=== PATIENT | male | born 1960 | race Caucasian/White ===

== ENCOUNTER 2021-06-27 03:03 | Emergency (ER) | payer MEDICARE, SELFPAY ==
[2021-06-27 03:05] VITALS: BP 113/64; PULSE 65; RESP 14; TEMP 36.4; O2SAT 92; BMI 30.8
--- NOTE | 2021-06-27 03:08 | XRR_ITS ---
PROCEDURE INFORMATION: Exam: XR Chest Exam date and time: 06/27/2021 3:08 AM Age: 61 years old Clinical indication: Prior surgery; Surgery type: Open heart; Patient HX: General weakness. TECHNIQUE: Imaging protocol: XR of the chest. Views: 1 view. COMPARISON: No relevant prior studies available. FINDINGS: Lungs: Unremarkable. No consolidation. Pleural spaces: Unremarkable. No pleural effusion. No pneumothorax. Heart/Mediastinum: Unremarkable. No cardiomegaly. Bones/joints: There has been a median sternotomy. XR/XR chest 1V portable [id number] IMPRESSION: No acute disease.
--- NOTE | 2021-06-27 03:08 | XRR_ITS ---
PROCEDURE INFORMATION: Exam: XR Right Hip Exam date and time: 06/27/2021 3:08 AM Age: 61 years old Clinical indication: Right hip; Patient HX: Worsening chronic hip pain. No known injury. TECHNIQUE: Imaging protocol: XR Right hip. Views: 1 view hip with pelvis when performed. COMPARISON: No relevant prior studies available. FINDINGS: Bones/joints: No acute fracture or dislocation. Severe joint space narrowing with subchondral sclerosis , cyst formation and remodeling of the femoral head. Soft tissues: Unremarkable. XR/XR hip RT 2-3V wo/w pel* [id number] IMPRESSION: 1. No acute fracture or dislocation. 2. Severe right hip osteoarthritis.
--- NOTE | 2021-06-27 03:08 | ECG_ITS ---
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 Measurements Intervals [place] Rate: 59 P: 40 DC: 160 QRS: 42 QRSD: 124 T: 71 QT: 398 QTc: 396 Interpretive Statements SINUS BRADYCARDIA RIGHT BUNDLE BRANCH BLOCK [120+ ms QRS DURATION, UPRIGHT V1, 40+ ms S IN I/aVL/V4/V5/V6] No previous ECG available for comparison Electronically Signed On 06-27-2021 17:34:30 PET RESORT CONCIERGE by José Miguel Jaeger M.D. [id number]
--- NOTE | 2021-06-27 03:12 | ED_ITS ---
HPI - Extremity Problem General: Chief complaint: Extremity Problem,Nontraumatic Stated complaint: hip pain Time Seen by Provider: 06/27/21 03:03 Source: patient and EMS Mode of arrival: EMS Limitations: no limitations History of Present Illness: 61-year-old male who has a history of chronic right hip pain. He states he been having pain in the hip for years and is supposed to have a hip replacement. EMS was called tonight as residents for altered mental status he states that he was sleeping he has been smoking marijuana tonight he states for pain control. Here he is awake alert able answer all my questions appropriately is ANO x4. He states the pain in his hip has been worsening rates an 8 out of 10 has a hard time walking due to the pain. Denies any recent injuries denies any fevers. Associated symptoms: Deny chest pain, fever(s) or rash Review of Systems Const: Denies: fever(s), chills, body aches or change in appetite Eyes: Denies: blurry vision or eye discomfort ENMT: Denies: throat pain or dental pain Card: Denies: chest pain Resp: Denies: dyspnea GI: Denies: abdominal pain, nausea, vomiting or diarrhea : Denies: dysuria Musc: Reports: extremity pain Skin/Breast: Denies: rash Neuro: Denies: headache(s) Psych: Denies: depression Jesse/Lymph: Denies: easy bruising All/Imm: Denies: urticaria Physical Exam Const: COMMON NORMALS: no acute distress, patient oriented x3 and healthy appearing HENMT: COMMON NORMALS: normocephalic and atraumatic HEAD & SCALP: normocephalic and atraumatic Eye: COMMON NORMALS: Equal, round and reactive pupils present and EOMs intact bilaterally PUPIL: Yes Equal, round and reactive pupils present Neck/C-Spine: COMMON NORMALS: full ROM and supple Chest: COMMONS NORMALS: normal inspection of the chest and normal palpation of entire chest wall Resp: COMMON NORMALS: normal respiratory effort, No retractions, No use of accessory muscles and clear to auscultation bilaterally AUSCULTATION: clear to auscultation bilaterally Cardio: COMMON NORMALS: regular rate, regular rhythm and No murmurs present (Cardio) RATE: regular rate RHYTHM: regular rhythm GI: COMMON NORMALS: Normal to inspection, nondistended, normoactive bowel sounds present, Soft to palpation, non-tender and no masses PALPATION: Yes Soft to palpation Extremity: COMMON NORMALS: normal to inspection and full ROM NARRATIVE EXTREMITY EXAM: Tenderness along right hip pain with range of motion of the right hip distal pulses intact. Neuro: COMMON NORMALS: patient oriented x3, moves all extremities and no focal motor deficits Psych: COMMON NORMALS: mental status grossly normal, Normal thought process present and cooperative THOUGHT PROCESS: Normal thought process present Skin: COMMON NORMALS: no rashes or lesions noted and no wounds GENERAL SKIN EXAM: no rashes or lesions noted Course Vital Signs: Vital signs: Vital Signs Temperature 97.6 F 06/27/21 03:05 Pulse Rate 65 06/27/21 03:05 Respiratory Rate 14 06/27/21 03:05 Blood Pressure 113/64 06/27/21 03:05 Pulse Oximetry 92 06/27/21 03:05 MDM - Extremity (Nontraumatic) Medical Decision Making Patient presents here with right hip pain from chronic arthritis he has no signs of septic joint had some slight confusion at home today could be from marijuana use here he is able answer all my questions appropriately head CT is normal he is stable for discharge we will get him follow-up with orthopedics he is to return if worsening Lab Data : 06/27/21 02:50 06/27/21 02:50 Radiology Impressions Chest X-Ray 06/27/21 03:08 IMPRESSION: No acute disease. Hip/Pelvis X-Ray 06/27/21 03:08 IMPRESSION: 1. No acute fracture or dislocation. 2. Severe right hip osteoarthritis. Head CT 06/27/21 03:45 IMPRESSION: 1. No acute infarct or hemorrhage. 2. No calvarial or skull base fracture. Laboratory Results WBC 12.1 10^3/uL (4.0-10.0) H 06/27/21 02:50 RBC 4.45 10^6/uL (4.1-5.3) 06/27/21 02:50 Hgb 13.2 g/dL (11.7-16.6) 06/27/21 02:50 Hct 39.2 % (42.0-52.0) L 06/27/21 02:50 MCV 88.1 fl (80-94) 06/27/21 02:50 MCH 29.7 pg (28.0-34.0) 06/27/21 02:50 MCHC 33.7 g/dL (30.0-36.0) 06/27/21 02:50 RDW 12.3 % (12.1-15.1) 06/27/21 02:50 Plt Count 235 10^3/cmm (130-400) 06/27/21 02:50 MPV 11.3 fL (7.4-10.4) H 06/27/21 02:50 Neut % (Auto) 71.9 % 06/27/21 02:50 Lymph % (Auto) 15.9 % 06/27/21 02:50 Isabella % (Auto) 8.0 % 06/27/21 02:50 Eos % (Auto) 3.1 % 06/27/21 02:50 Baso % (Auto) 0.4 % 06/27/21 02:50 Neut # (Auto) 8.70 10^3/uL (1.8-7.7) H 06/27/21 02:50 Lymph # (Auto) 1.9 10^3/uL (0.8-4.8) 06/27/21 02:50 Isabella # (Auto) 1.0 10^3/uL (0.2-0.9) H 06/27/21 02:50 Eos # (Auto) 0.4 10^3/uL (0.0-0.8) 06/27/21 02:50 Baso # (Auto) 0.1 10^3/uL (0.0-0.1) 06/27/21 02:50 Nucleated RBC % (auto) 0 % 06/27/21 02:50 Nucleated RBCs # 0.0 /100WBC 06/27/21 02:50 ESR 18 mm/hr (0-10) H 06/27/21 02:50 Sodium 139 mmol/L (136-145) 06/27/21 02:50 Potassium 4.2 mmol/L (3.5-5.1) 06/27/21 02:50 Chloride 101 mmol/L (98-107) 06/27/21 02:50 Carbon Dioxide 25 mmol/L (22-29) 06/27/21 02:50 Anion Gap 17.2 (5-19) 06/27/21 02:50 BUN 22 mg/dL (8-23) 06/27/21 02:50 Creatinine 0.9 mg/dL (0.7-1.2) 06/27/21 02:50 GFR Calculation 86.1 mL/min (90-130) L 06/27/21 02:50 Glucose 229 mg/dL (65-115) H 06/27/21 02:50 Calculated Osmolality 299 mOsm/kg (285-295) H 06/27/21 02:50 Calcium 9.7 mg/dL (8.5-10.5) 06/27/21 02:50 Total Bilirubin 0.3 mg/dL (0.15-1.2) 06/27/21 02:50 AST 31 U/L (0-40) 06/27/21 02:50 ALT 34 U/L (0-41) 06/27/21 02:50 Alkaline Phosphatase 125 IU/L (40-130) 06/27/21 02:50 C-Reactive Protein 13.3 mg/L (0.0-4.9) H 06/27/21 02:50 Total Protein 6.9 g/dL (6.6-8.7) 06/27/21 02:50 Albumin 4.4 g/dL (3.5-5.2) 06/27/21 02:50 Globulin 2.5 g/dL (1.3-4.6) 06/27/21 02:50 EKG Data EKG 1: I personally reviewed and interpreted this EKG as follows: EKG interpretation date: 06/27/21 EKG interpretation time: 03:24 Interpretation: sinus demi hr [address] or t wave abnormalities qrs 124 qtc 397 Discharge Plan Discharge Patient Disposition: Home Clinical Impression: Hip pain, right Condition: Stable Prescriptions: New hydrocodone-acetaminophen 5-325 mg tablet 1 tab PO Q6H PRN (Reason: pain) Qty: 14 0RF Discharge Orders: Discharge ED (Routine); Ordered 06/27/21 Ordered By: Edgar Du Referrals: Janes Reilly DO [Physician] - 1-3 days Discharge Diet: Advance as tolerated Discharge Activity: Resume usual activity Patient Instructions: Hip Pain (ED), Opioid Safety Coding Level of Care Code ED Consumer Safety Inspector for Chg Fwd Exam Comprehensive
[2021-06-27 03:19] LABS: Basophils # 0.1 10^3/uL (0.0-0.1); Basophils % 0.4 %; Eosinophils # 0.4 10^3/uL (0.0-0.8); Eosinophils % 3.1 %; Hematocrit 39.2 % (42.0-52.0); Hemoglobin 13.2 g/dL (11.7-16.6); Lymphocytes # 1.9 10^3/uL (0.8-4.8); Lymphocytes % 15.9 %; Mean Corpuscular HGB Conc 33.7 g/dL (30.0-36.0); Mean Corpuscular Hemoglobin 29.7 pg (28.0-34.0); Mean Corpuscular Volume 88.1 fl (80-94); Mean Platelet Volume 11.3 fL (7.4-10.4); Neutrophils % 71.9 %; Nucleated Red Blood Cells % 0 %; Platelet Count 235 10^3/cmm (130-400); Red Blood Count 4.45 10^6/uL (4.1-5.3); Red Cell Distribution Width 12.3 % (12.1-15.1); White Blood Count 12.1 10^3/uL (4.0-10.0)
[2021-06-27 03:35] LABS: Alanine Aminotransferase 34 U/L (0-41); Albumin Level 4.4 g/dL (3.5-5.2); Alkaline Phosphatase 125 IU/L (40-130); Anion Gap 17.2 (5-19); Aspartate Amino Transferase 31 U/L (0-40); Blood Urea Nitrogen 22 mg/dL (8-23); C Reactive Protein 13.3 mg/L (0.0-4.9); Calcium 9.7 mg/dL (8.5-10.5); Carbon Dioxide 25 mmol/L (22-29); Chloride 101 mmol/L (98-107); Globulin 2.5 g/dL (1.3-4.6); Glomerular Filtration Rate 86.1 mL/min (90-130); Glucose 229 mg/dL (65-115); Osmolality Calculated 299 mOsm/kg (285-295); Potassium 4.2 mmol/L (3.5-5.1); Sodium 139 mmol/L (136-145); Total Bilirubin 0.3 mg/dL (0.15-1.2); Total Protein 6.9 g/dL (6.6-8.7)
[2021-06-27 03:36] LABS: Erythrocyte Sedimentation Rate 18 mm/hr (0-10)
--- NOTE | 2021-06-27 03:45 | CTR_ITS ---
PROCEDURE INFORMATION: Exam: CT Head Without Contrast Exam date and time: 06/27/2021 3:45 AM Age: 61 years old Clinical indication: Altered mental status/memory loss; Patient HX: Patient lethargic and acting confused. ; Additional info: Confusion TECHNIQUE: Imaging protocol: Computed tomography of the head without contrast. Radiation optimization: All CT scans at this facility use at least one of these dose optimization techniques: automated exposure control; mA and/or kV adjustment per patient size (includes targeted exams where dose is matched to clinical indication); or iterative reconstruction. COMPARISON: No relevant prior studies available. RADIATION DOSE METRICS: Total DLP (mGy-cm): 820.31 FINDINGS: Brain: Old left basal ganglia lacunar infarct. No acute infarct or hemorrhage. Cerebral ventricles: No ventriculomegaly. Paranasal sinuses: Mild mucosal thickening in the paranasal sinuses. Mastoid air cells: Visualized mastoid air cells are clear. Bones/joints: No calvarial or skull base fracture. Soft tissues: Unremarkable. CT/CT head wo con* [id number] IMPRESSION: 1. No acute infarct or hemorrhage. 2. No calvarial or skull base fracture.
[2021-06-27 04:42] VITALS: BP 142/75; PULSE 66; RESP 20; O2SAT 93
== END 2021-06-27 04:43 | disposition home or self-care (01) ==
PROVIDERS: Emergency Provider Emergency Medicine
DX: M25.551 Pain in right hip (principal); Z96.641 Presence of right artificial hip joint
CPT/HCPCS: 70450; 71045; 73502; 80053; 85025; 85651; 86140; 93005; 99283

== ENCOUNTER → 2021-07-25 13:49 | Day surgery (SDC) | payer MEDICARE, SELFPAY | PROVIDERS: Visit Provider Orthopaedic Surgery | DX: Z01.818 Encounter for other preprocedural examination (principal) | CPT/HCPCS: 93005 ==

== ENCOUNTER 2021-07-31 10:19 | Observation (INO) | payer MEDICARE, SELFPAY ==
[2021-07-25 13:36] VITALS: BMI 30.8
--- NOTE | 2021-07-25 13:49 | ECG_ITS ---
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 Measurements Intervals [place] Rate: 69 P: -1 AK: 169 QRS: 12 QRSD: 129 T: 33 QT: 379 QTc: 407 Interpretive Statements SINUS RHYTHM MODERATE INTRAVENTRICULAR CONDUCTION DELAY [110+ ms QRS DURATION] Compared to ECG 06/27/2021 03:24:35 Intraventricular conduction delay now present Sinus bradycardia no longer present Right bundle-branch block no longer present Electronically Signed On 07-25-2021 22:59:54 CDT by Gladis Suazo M.D. [id number]
[2021-07-25 14:03] LABS: Basophils # 0.1 10^3/uL (0.0-0.1); Basophils % 0.6 %; Eosinophils # 0.3 10^3/uL (0.0-0.8); Eosinophils % 4.1 %; Hematocrit 42.2 % (42.0-52.0); Hemoglobin 14.4 g/dL (11.7-16.6); Lymphocytes # 2.4 10^3/uL (0.8-4.8); Lymphocytes % 30.5 %; Mean Corpuscular HGB Conc 34.1 g/dL (30.0-36.0); Mean Corpuscular Hemoglobin 29.8 pg (28.0-34.0); Mean Corpuscular Volume 87.2 fl (80-94); Mean Platelet Volume 11.2 fL (7.4-10.4); Monocytes # 0.8 10^3/uL (0.2-0.9); Monocytes % 9.5 %; Neutrophils # 4.32 10^3/uL (1.8-7.7); Neutrophils % 54.9 %; Nucleated Red Blood Cells % 0 %; Platelet Count 205 10^3/cmm (130-400); Red Blood Count 4.84 10^6/uL (4.1-5.3); Red Cell Distribution Width 12.5 % (12.1-15.1); White Blood Count 7.9 10^3/uL (4.0-10.0)
--- NOTE | 2021-07-25 14:18 | P.ANESASSM_ITS ---
Pre-Anesthetic Assessment Height/Weight: Height 1.78 m Weight 97.522 kg Preop Diagnosis: osteoarthritis right hip Operation Date: 07/31/21 10:45 Proposed Procedures p Total Hip Arthroplasty right 63919/m16.11(Right) - Danis Moyer MD Familial anesthetic complications: None Was Beta Emma taken within 24 hours: N/A Was Clonidine taken within 24 hours: N/A Social No alcohol and No tobacco Former smoker, former ETOH use Exam alert, oriented x 3, clear to auscultation bilaterally and regular rate & rhythm Airway Submandibular: within normal limits Cervical ROM: within normal limits Mallampati: Class I Comments: Comments: Missing most teeth Pulmonary Shortness of Breath CV/HEM Coronary Artery Disease and Myocardial Infarction S/P 4 vessel CABG Per patient no CP or SOB with flight of stairs METS > 4 GI Gastroesophageal Reflux Disease (Occassionaly symptomatic on empty stomach ) Metabolic Diabetes Mellitus Musc/skel Osteoarthritis/DJD Neuropsych Had episode of waking up on ground about 5-6 years ago. No residual weakness. Suspects seizure or stroke Anesthetic Plan ASA status: 3 Anesthesia: Anesthesia Evaluation and General Other: We discussed risk and benefits of general vs spinal anesthesia including DVT risk, infection, paralysis/catastrophic nerve injury, back bruising/pain, PDPH, conversion to general in case of spinal, PONV, sore throat (sometimes severe), corneal abrasion, positioning and peripheral nerve injuries, life threatening allergic reaction, post operative ICU admission requiring prolonged intubation, stroke, heart attack, , post operative delirium and/or post operative cognitive decline, and rare incidences of recall (under general anesthesia). Patient prefers general. Risk of > 500 ml blood loss (7ml/kg in children): No Medications/Allergies Home Medications Medication Instructions Recorded Confirmed Last Taken Type alprazolam 0.25 mg tablet 0.25 mg PO BID 07/18/21 07/25/21 Unknown History amlodipine 2.5 mg tablet 2.5 mg PO DAILY 07/18/21 07/25/21 Unknown History aspirin 81 mg tablet,delayed 81 mg PO DAILY 07/18/21 07/25/21 Unknown History release clopidogrel 75 mg tablet (Plavix) 75 mg PO DAILY 07/18/21 07/25/21 Unknown History famotidine 20 mg tablet 20 mg PO DAILY 07/18/21 07/25/21 Unknown History gabapentin 400 mg capsule 400 mg PO TID 07/18/21 07/25/21 Unknown History glimepiride 2 mg tablet 2 mg PO DAILY 07/18/21 07/25/21 Unknown History metformin 1,000 mg tablet 1,000 mg PO BID 07/18/21 07/25/21 Unknown History oxycodone 20 mg tablet 20 mg PO QID PRN 07/18/21 07/25/21 Unknown History rosuvastatin 20 mg tablet 20 mg PO DAILY 07/18/21 07/25/21 Unknown History Allergies Allergy/AdvReac Type Severity Reaction Status Date / Time No Known Allergies Allergy Verified 07/18/21 15:20 [facility] Anesthesia Social History Smoking and tobacco status: former smoker Alcohol intake: never Data Anesthesia : 07/25/21 13:55 Short CBC 07/25/21 Range/Units 13:55 WBC 7.9 (4.0-10.0) 10^3/uL Hgb 14.4 (11.7-16.6) g/dL Hct 42.2 (42.0-52.0) % MCV 87.2 (80-94) fl Plt Count 205 (130-400) 10^3/cmm Neut % (Auto) 54.9 % Neut # (Auto) 4.32 (1.8-7.7) 10^3/uL Cardiac Studies: No Data to Display
[2021-07-31] VITALS (23 sets, daily range): BP systolic 93–180; BP diastolic 62–103; PULSE 58–84; RESP 12–18; TEMP 36.3–37.1; O2SAT 95–100
[2021-07-31 06:20] LABS: Glucose Point of Care 212 mg/dL (70-110)
[2021-07-31] MEDS: CELEcoxib 200 mg Capsule 400 MG PO (06:27)
[2021-07-31] MEDS: acetaminophen 500 mg Tablet 1000 MG PO ×3 (06:28→22:49)
[2021-07-31] MEDS: sodium chloride 0.9% 1,000 ML 30 ML IV (06:31)
--- NOTE | 2021-07-31 07:06 | P.HP_ITS ---
Same Day Surgery H&P Indication for Procedure/HPI DATE OF PROCEDURE: July 31, 2021 CHIEF COMPLAINT/INDICATIONFOR SURGICAL PROCEDURE: Osteoarthritis right hip here for right total hip arthroplasty PREOP DIAGNOSIS: Osteoarthritis Right hip PLANNED PROCEDURE: Operation Date: 07/31/21 07:00 Proposed Procedures p Total Hip Arthroplasty right 83647/m16.11(Right) - Danis Moyer MD 2-year history of progressive uncontrolled with medications including oxycodone and gabapentin here for elective right total hip arthroplasty Medications/Allergies* Home Medications Medication Instructions Recorded Confirmed Type alprazolam 0.25 mg tablet 0.25 mg PO BID 07/18/21 07/31/21 History amlodipine 2.5 mg tablet 2.5 mg PO DAILY 07/18/21 07/31/21 History aspirin 81 mg tablet,delayed 81 mg PO DAILY 07/18/21 07/31/21 History release clopidogrel 75 mg tablet (Plavix) 75 mg PO DAILY 07/18/21 07/31/21 History famotidine 20 mg tablet 20 mg PO DAILY 07/18/21 07/31/21 History gabapentin 400 mg capsule 400 mg PO TID 07/18/21 07/31/21 History glimepiride 2 mg tablet 2 mg PO DAILY 07/18/21 07/31/21 History metformin 1,000 mg tablet 1,000 mg PO BID 07/18/21 07/31/21 History oxycodone 20 mg tablet 20 mg PO QID PRN 07/18/21 07/31/21 History rosuvastatin 20 mg tablet 20 mg PO DAILY 07/18/21 07/31/21 History Allergies/Adverse Reactions Allergy/AdvReac Type Severity Reaction Status Date / Time No Known Allergies Allergy Verified 07/18/21 15:20 Current Medications: Generic Name Dose Route Start Last Admin Trade Name Freq PRN Reason Stop Dose Admin Sodium Chloride 1,000 mls @ 30 mls/hr 07/31/21 05:45 07/31/21 06:31 Sodium Chloride 0.9% IV 08/01/21 05:44 30 mls/hr .Q24H PATRICIO Administration Pertinent History/Comorbid Conditions* Social History Smoking and tobacco status: former smoker Alcohol intake: never Pertinent Exam Findings alert, oriented x 3, clear to auscultation bilaterally, regular rate & rhythm and operative site marked Recommendations Surgery/Procedure today Coding Level of Care Code Acute Property Disposal Manager for g Kesha
--- NOTE | 2021-07-31 07:39 | P.ANESUD_ITS ---
Pre-Anesthetic Update Pre-Anesthetic Assessment: Date of Surgery/Procedure: 07/31/21 Preop Irene gnosis: Osteoarthritis Right hip Proposed Procedure: Operation Date: 07/31/21 07:00 Proposed Procedures p Total Hip Arthroplasty right 57446/m16.11(Right) - Danis Moyer MD Any changes to Pre-Anesthetic Assessment?: No Last Intake: Intake Last Liquid Date 07/30/21 Last Liquid Time 23:00 Last Solid Date 07/30/21 Last Solid Time 18:00 Vitals: Temperature 97.8 F 07/31/21 06:09 Temperature Source Temporal Artery S can 07/31/21 06:09 Pulse Rate 66 07/31/21 06:09 Respiratory Rate 15 07/31/21 06:09 Blood Pressure 140/85 07/31/21 06:09 Blood Pressure Leigha n 103 07/31/21 06:09 Pulse Oximetry 95 07/31/21 06:09 Oxygen Delivery Me thod 07/31/21 06:09 Exam: Pre-Anes Outpt Exam: alert, oriented x 3, clear to auscultation bilaterally and regular rate & rhythm Cardiac Studies: No Data to Display
--- NOTE | 2021-07-31 09:22 | XRR_ITS ---
PROCEDURE INFORMATION: Exam: XR Right Hip Exam date and time: 07/31/2021 9:30 AM Age: 61 years old Clinical indication: Device placement; Other: Right total hip; Prior surgery; Surgery date: Post-operative (0-2 days) TECHNIQUE: Imaging protocol: XR Right hip. Views: 1 view hip with pelvis when performed. COMPARISON: CR (PELVIS, ) 06/27/2021 3:11 AM FINDINGS: Bones/joints: Metallic arthroplasty is present in good position. No acute fracture. Soft tissues: Unremarkable. XR/XR hip RT 1V wo/w pel [id number] IMPRESSION: 1. Metallic right hip arthroplasty in good position 2. Otherwise No acute findings.
--- NOTE | 2021-07-31 09:23 | PM.OP ---
Operative Report Date of procedure: July 31, 2021 Pre-op diagnosis: Preop Diagnosis Osteoarthritis Right hip Post-op diagnosis: same Post-op diagnosis: Same Post-op findings: Same Procedure done: Right total hip arthroplasty Implants: 1) Renu 52mm Trident 2 solid back acetabular shell 2) Size 5 Fleming 127 degree neck angle Accolade 2 stem 3} 28mm -2.7 ceramic femoral head 4} MDM metal liner Pathology: none sent Surgeon: Danis Moyer Electronic Assembler Group Leader: Anatoly Simmons Electronic Assembler Group Leader: The physician's assistant to the dean assisted with exposure manipulation of the hip and closure of the wound. Estimated blood loss (mL): 250 Complications: None Condition: stable Disposition: PACU Procedure: The patient was taken to the operating room and anesthesia provided by the anesthesia service. The patient was placed in the lateral position on a pegboard. A timeout was performed. The patient was draped in the usual fashion. A 15 cm long incision was made beginning just proximal to the greater trochanter and extending posteriorly to a point just distal to the trochanter on the posterior border of the trochanter. Dissection was carried down with electrocautery through the subcutaneous fat to the fascia rob which was divided proximally and distally with curved scissors. The anterior two thirds of the gluteus medius and minimus were elevated off the hip with electrocautery. The capsule was divided in a H-like fashion. The hip was dislocated and a neck cut made just above the level of the lesser trochanter. Exposure of the acetabulum was facilitated with the acetabular retractors. Remnants of labrum and peripheral osteophytes were removed with electrocautery and a rongeur. A reamer 2 mm under the size the femoral head was utilized to ream medially to the base of the palm and are. Reaming was then increased in 1 mm intervals until a healthy rim a trabecular bone was encountered. The rim was touched with the reamer the size of the final acetabular shell to be placed. A final Trident 2 acetabular cup of the same size as the final reaming was press-fit into place. The ADM liner was secured. Attention was then focused on the femur. The canal was localized with a canal finder. Broaching was then accomplished until a stable broach size was obtained. A trial reduction with the head and neck provided excellent stability. The wound was irrigated with saline and antibiotic solution. The final Renu Accolade II stem was press-fit into place. The femoral head was placed and the hip was reduced. The hip was brought through range of motion and found to be free of impingement and stable. The anterior capsule was reapproximated with 1 Ethibond. The gluteus medius and minimus were repaired through bone with 5 Ethibond and reinforced with 1 Ethibond. The fascial rob was closed with a running 0 Stratafix suture. Deep pelvic tissues were closed with 2-0 Stratafix and the skin with a running 4-0 l Stratafix. The skin was covered with a Prineo dressing and op site dressings.
[2021-07-31] MEDS: fentaNYL 50 mcg/mL INJ 2mL IVP (09:34)
--- NOTE | 2021-07-31 09:35 | P.PCN_ITS ---
PACU note Narrative: VSS, Good respiratory effort, report to GRAIN OILSEED OR PASTURE FARM MANAGER Exam: awake
--- NOTE | 2021-07-31 09:35 | PM.PACU ---
PACU note Narrative: VSS, Good respiratory effort, report to BIZTALK CONSULTANT Exam: awake
[2021-07-31] MEDS: oxyCODONE 5 mg IR Tab/Cap 20 MG PO ×3 (11:50→23:35)
[2021-07-31] MEDS: sodium chloride 0.9% 1,000 ML 100 ML IV ×2 (12:37→20:51)
[2021-07-31] MEDS: insulin lispro 100 unit/1 mL SUBCUT ×2 (13:02→17:26)
--- NOTE | 2021-07-31 14:12 | ANE.PACU2 ---
Inpatient post-anesthesia follow up: Airway intact: Yes Vital signs: Temperature 97.8 F Pulse Rate 62 Respiratory Rate 18 Blood Pressure 180/91 Pulse Oximetry 98 Oxygen Delivery Me thod Nasal Cannula Oxygen Flow Rate 3 Fraction of Inspir ed Oxygen Hydration adequate: Yes Nausea and vomiting: No Pain level: 4 Mental status: Baseline
[2021-07-31] MEDS: gabapentin 400 mg Capsule PO ×2 (14:33→20:51)
[2021-07-31] MEDS: morphine 4 mg/mL SDV 1 mL IVP ×2 (14:33→19:14)
[2021-07-31 16:54] LABS: Glucose Point of Care 258 mg/dL (70-110)
[2021-07-31] MEDS: ALPRAZolam 0.5 mg Tablet 0.25 MG PO (17:24)
[2021-07-31] MEDS: CELEcoxib 200 mg Capsule PO (17:25)
[2021-07-31 20:49] LABS: Glucose Point of Care 201 mg/dL (70-110)
[2021-08-01] VITALS (7 sets, daily range): BP systolic 111–148; BP diastolic 64–81; PULSE 64–82; RESP 16–20; TEMP 36.4–36.8; O2SAT 96–97
--- NOTE | 2021-08-01 00:07 | PC.NURSE ---
PATIENT DENIES NEED FOR MEDICATION INTERVENTION AT THIS TIME FOR DISCOMFORT.
[2021-08-01 02:16] LABS: Hemoglobin 12.2 g/dL (11.7-16.6)
[2021-08-01] MEDS: morphine 4 mg/mL SDV 1 mL IVP ×2 (02:42→03:46)
--- NOTE | 2021-08-01 05:31 | NUR.SHIFT ---
Patient oriented when alert this shift. Noted to be awake through most of the night. Did have breakthrough pain so PRN medications given, ice packs also used at incision site. Dressing dry and intact with no drainage noted. Circulatory checks to RLE normal. Able to dangle at the bedside for a little while at start of this shift. Abductor pillow placed while resting in bed. IV in left FA infusing NS at 75ml/hr also used for IV antibiotics and pain medication administration. Accucheck done per orders. Vital signs stable, remains on room air and afebrile. No complaints of nausea or vomiting reported. Continent and voiding via urinal independently, clear and pale yellow.
[2021-08-01] MEDS: CELEcoxib 200 mg Capsule PO (05:39)
[2021-08-01] MEDS: acetaminophen 500 mg Tablet 1000 MG PO (05:39)
[2021-08-01] MEDS: oxyCODONE 5 mg IR Tab/Cap 20 MG PO (05:40)
--- NOTE | 2021-08-01 06:27 | PC.NURSE ---
Patient declined to get up to chair for breakfast at this time. Patient states he would like to wait until it is closer to breakfast time.
[2021-08-01 06:46] LABS: Glucose Point of Care 237 mg/dL (70-110)
[2021-08-01] MEDS: sodium chloride 0.9% 1,000 ML 100 ML IV (06:56)
--- NOTE | 2021-08-01 07:43 | PM.DCS ---
Discharge Providers Date of Admission: 07/31/21 10:19 Date of Discharge: August 01, 2021 Attending Provider at Admission: Danis Dean MD Attending Provider at Discharge: Danis Dean MD Diagnoses at Discharge Discharge Diagnosis (1) Status post right hip replacement: Status: Acute (2) Osteoarthritis of right hip: Status: Resolved Reason for Visit Reason for Visit: arthritis of right hip Hospital Course Hospital Course The patient tolerated surgery well. They remained hemodynamically stable. They was begun on aspirin Eliquis on the first postoperative dayfor DVT prophylaxis. The patient was mobilized with therapy beginning the day of surgery and by the first postoperative day independent with the walker. As the pain was adequately controlled and they were fully mobile they were discharged home. Physical Exam Narrative: On the day of discharge the hip incision was clean. The incision was free of drainage. They had no particular swelling about the thigh or distal. No distal neurovascular deficits were noted. Discharge Data Studies Completed and Pending Completed Studies During Hospitalization Category Date Time Status XR hip RT 1V wo/w pel [id number] Routine Exams 07/31/21 09:22 Completed Radiology Impressions Hip X-Ray 07/31/21 09:22 IMPRESSION: 1. Metallic right hip arthroplasty in good position 2. Otherwise No acute findings. Laboratory Results WBC 7.9 10^3/uL (4.0-10.0) 07/25/21 13:55 RBC 4.84 10^6/uL (4.1-5.3) 07/25/21 13:55 Hgb 12.2 g/dL (11.7-16.6) 08/01/21 01:52 Hct 42.2 % (42.0-52.0) 07/25/21 13:55 MCV 87.2 fl (80-94) 07/25/21 13:55 MCH 29.8 pg (28.0-34.0) 07/25/21 13:55 MCHC 34.1 g/dL (30.0-36.0) 07/25/21 13:55 RDW 12.5 % (12.1-15.1) 07/25/21 13:55 Plt Count 205 10^3/cmm (130-400) 07/25/21 13:55 MPV 11.2 fL (7.4-10.4) H 07/25/21 13:55 Neut % (Auto) 54.9 % 07/25/21 13:55 Lymph % (Auto) 30.5 % 07/25/21 13:55 [place] % (Auto) 9.5 % 07/25/21 13:55 Eos % (Auto) 4.1 % 07/25/21 13:55 Baso % (Auto) 0.6 % 07/25/21 13:55 Neut # (Auto) 4.32 10^3/uL (1.8-7.7) 07/25/21 13:55 Lymph # (Auto) 2.4 10^3/uL (0.8-4.8) 07/25/21 13:55 [place] # (Auto) 0.8 10^3/uL (0.2-0.9) 07/25/21 13:55 Eos # (Auto) 0.3 10^3/uL (0.0-0.8) 07/25/21 13:55 Baso # (Auto) 0.1 10^3/uL (0.0-0.1) 07/25/21 13:55 Nucleated RBC % (auto) 0 % 07/25/21 13:55 Nucleated RBCs # 0.0 /100WBC 07/25/21 13:55 POC Glucose 237 mg/dL (70-110) H 08/01/21 06:29 Vitals Last Vital Signs Temp 97.5 F L 08/01/21 05:01 Pulse 82 08/01/21 05:01 Resp 20 H 08/01/21 06:53 BP 148/81 08/01/21 05:01 Pulse Ox 96 08/01/21 05:01 Discharge Plan Discharge Patient Disposition: Home Condition: Stable Prescriptions: New hydromorphone 4 mg Tablet 8 mg PO Q6H PRN (Reason: Severe Pain) 7 Days Qty: 50 0RF celecoxib 200 mg Capsule 200 mg PO Q12H 14 Days Qty: 28 0RF Eliquis 2.5 mg tablet 2.5 mg PO BID 30 Days Qty: 60 0RF acetaminophen 500 mg Tablet 1,000 mg PO Q8H 14 Days Qty: 84 0RF Continued gabapentin 400 mg capsule 400 mg PO TID 0RF clopidogrel [Plavix] 75 mg tablet 75 mg PO DAILY 0RF metformin 1,000 mg tablet 1,000 mg PO BID 0RF rosuvastatin 20 mg tablet 20 mg PO DAILY 0RF glimepiride 2 mg tablet 2 mg PO DAILY 0RF oxycodone 20 mg tablet 20 mg PO QID PRN (Reason: Pain) 0RF amlodipine 2.5 mg tablet 2.5 mg PO DAILY 0RF alprazolam 0.25 mg tablet 0.25 mg PO BID 0RF famotidine 20 mg tablet 20 mg PO DAILY 0RF aspirin 81 mg tablet,delayed release (DR/EC) 81 mg PO DAILY 0RF Discharge Orders: Discharge Order (Routine); Ordered 08/01/21 Ordered By: Danis Dean Other Ambulatory Orders: DME: Mike (Order) Location: None Selected Ordered By: Danis Dean Discharge Diet: Advance as tolerated Discharge Activity: Limit activity as instructed Patient Instructions: Opioid Safety Activity Restrictions/Additional Instructions: Okay to shower. No soaking incision in tub Continue oxycodone and gabapentin prescribed preoperatively Apply FirstIce up to 20 min/hr for pain and swelling Take Celebrex twice a day for the next 15 days for pain , discontinue other anti-inflammatories Take Tylenol 500mg (up to 2 tabs) 3 times a day for mild pain Take Dilaudid for breakthrough pain. Exercises per physical therapy. May weight-bear as tolerated on total hip arthroplasty IF HAVE ANY PROBLEMS OR QUESTIONS CALL [facility] AND ASK TO HAVE DR. DEAN PAGEKeyla. Discharge Attestations Time Spent in Discharge Care*: other Quality Metrics Clinical Quality Measures [ No reported AMI, CVA or VTE this stay] Coding Level of Care Code Acute [facility] note Diagnoses Status post right hip replacement Z96.641 Osteoarthritis of right hip M16.11
[2021-08-01] MEDS: atorvastatin 40 mg Tablet 80 MG PO (10:29)
[2021-08-01] MEDS: famotidine 20 mg Tablet PO (10:30)
[2021-08-01] MEDS: amlodipine 5 mg Tablet 2.5 MG PO (10:30)
[2021-08-01] MEDS: gabapentin 400 mg Capsule PO (10:31)
[2021-08-01] MEDS: clopidogrel 75 mg Tablet PO (10:31)
[2021-08-01] MEDS: aspirin 81 mg EC Tablet PO (10:31)
[2021-08-01] MEDS: apixaban 5 mg Tablet 2.5 MG PO (10:34)
[2021-08-01 11:35] LABS: Glucose Point of Care 294 mg/dL (70-110)
== END 2021-08-01 11:57 | disposition home or self-care (01) ==
LOC: MEDSURG 10:20
PROVIDERS: Anesthesiology; Admitting Provider Orthopaedic Surgery; Visit Provider Orthopaedic Surgery
PROC: (CPT 27130; principal; 2021-07-31 07:00)
DX: M16.11 Unilateral primary osteoarthritis, right hip (principal); Z87.891 Personal history of nicotine dependence; I25.10 Atherosclerotic heart disease of native coronary artery without angina pectoris; I25.2 Old myocardial infarction; Z95.1 Presence of aortocoronary bypass graft; K21.9 Gastro-esophageal reflux disease without esophagitis; E11.9 Type 2 diabetes mellitus without complications; Z79.82 Long term (current) use of aspirin
CPT/HCPCS: 27130; 36415; 36416; 73501; 82962; 85018; 85025; 97110; 97116; 97161; 97165; C1776; G0378; J0330; J0690; J1100; J1170; J1580; J1815; J2250; J2270; J2370; J2405; J2704; J2710; J3010; J3490; J7030

== ENCOUNTER → 2021-09-12 08:53 | Outpatient (BNVA) | payer MEDICARE, SELFPAY | PROVIDERS: Visit Provider Orthopaedic Surgery | DX: Z96.641 Presence of right artificial hip joint (principal) | CPT/HCPCS: 73502 ==

== ENCOUNTER → 2021-10-17 08:22 | Outpatient (BNVA) | payer MEDICARE, SELFPAY | PROVIDERS: Visit Provider Orthopaedic Surgery | DX: Z96.641 Presence of right artificial hip joint (principal) | CPT/HCPCS: 99024 ==